=== PATIENT | female | born 1980 | race Caucasian/White ===

== ENCOUNTER 2020-01-24 06:32 | Emergency (ER) | payer MEDICAID ==
[~2020-01-24] VITALS: Ht 177.8 cm; Wt 108.9 kg
[2020-01-24 07:13] VITALS: BP 170/120
[2020-01-24] MEDS ORDERED: IBUPROFEN 800 MG TAB PO ONE (08:15)
== END 2020-01-24 08:53 | disposition home or self-care (01) ==
LOC: ER 06:32
DX: S92.515A Nondisplaced fracture of proximal phalanx of left lesser toe(s), initial encounter for closed fracture (principal); I10 Essential (primary) hypertension; Z88.0 Allergy status to penicillin; X50.1XXA Overexertion from prolonged static or awkward postures, initial encounter; Y93.89 Activity, other specified; Y92.89 Other specified places as the place of occurrence of the external cause; Y99.8 Other external cause status
CPT/HCPCS: 73630